=== PATIENT | female | born 1930 | race Caucasian/White ===

== ENCOUNTER 2017-05-03 13:32 | Emergency (ER) | payer SELFPAY ==
--- NOTE | 2017-05-03 13:44 | EDPHY ---
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 She was in the shower this morning and felt her heart racing. This was not associated with chest pain shortness of breath or syncope but she feels like she has decreased energy she uses the term"not enthusiastic." REVIEW OF SYSTEMS: Eye: no change in vision ENT: no sore throat Cardiac: HPI Pulmonary: no cough or SOB Abdomen: no vomiting, diarrhea, abdominal pain Musculoskeletal: no back pain Skin: no rash Neuro: no headache Constitutional: no fever : no urinary symptoms A comprehensive 10 point review of systems is otherwise negative aside from elements mentioned in the history of present illness. PAST MEDICAL HISTORY: Negative Social history: Here with her ex [id number], retired surgeon from [facility] General Appearance: Alert and conversant, cooperative. Eyes: No scleral icterus. ENT, Mouth: Normal mucous membranes. Respiratory: Normal respiratory effort, breath sounds equal, lungs are clear to auscultation. Cardiovascular: Regular rate and rhythm. Tachycardic Gastrointestinal: Abdomen is soft and non tender. Neurological: Alert, face symmetric, normal motor and sensory in extremities. Skin: Warm and dry, no rashes. Musculoskeletal: No peripheral edema. Psychiatric: Not agitated. Emergency Department course/MDM: Both EKGs reviewed by myself appear to be SVT, she was given 6 mg IV adenosine and converted to sinus rhythm. Labs to include electrolytes troponin and D-dimer. 1445: Results discussed, still in sinus rhythm. D-dimer and troponin negative. Clinically the patient is safe for discharge does not appear to have high risk for ACS or venous thromboembolism. I told her I think it is reasonable for to travel back to [facility] in the next few days if that is her wish. She is discharged with copies of her EKGs and labs. Smoking Status: Former smoker Constitutional: Initial Vital Signs Temperature (C) 36.5 C 05/03/17 13:34 Heart Rate 145 H 05/03/17 13:34 Respiratory Rate 16 05/03/17 13:34 Blood Pressure 100/81 H 05/03/17 13:34 O2 Sat (%) 94 05/03/17 13:34 O2 Delivery Mode Nasal Cannula O2 (L/minute) 2 Allergies/Adverse Reactions: No Known Allergies Allergy (Unverified 05/03/17 13:38) Home Medications: Medication Instructions Recorded NK [No Known Home Meds] 05/03/17 Medical Decision Making - Diagnostics EKG Interpretation: 12-lead EKG interpreted by me; official reading is in trace master. My interpretation is supraventricular tachycardia rate 145 with rate-related ST changes. 12-lead EKG interpreted by me; official reading is in trace master. My interpretation is sinus rhythm rate 87 with inferior Q-waves noted, after conversion Differential Diagnosis: Differential diagnosis considered for narrow complex tachycardia including but not limited to various causes of sinus tachycardia, SVT, atrial flutter and atrial fibrillation. Critical Care Time: Critical care time spent by me, Dr. Bah, exclusively with the care of this patient was 30 minutes, exclusive of PA or JUNIOR SALES REPRESENTATIVE time and exclusive of separate procedures. The organ system at risk was cardiovascular for tachycardia and I ordered multiple EKGs IV adenosine, serial monitor to stabilize the patient and prevent worsening of the patient's condition. - Data Points Laboratory Results: Laboratory Results 05/03/17 13:31 05/03/17 13:31 05/03/17 05/03/17 05/03/17 13:31 13:31 13:31 WBC 8.20 10^3/uL 10^3/uL (3.80-9.50) RBC 5.07 10^6/uL 10^6/uL (4.18-5.33) Hgb 15.9 g/dL g/dL (12.6-16.3) Hct 49.7 % H % (38.0-47.0) MCV 98.0 fL fL (81.5-99.8) MCH 31.4 pg pg (27.9-34.1) MCHC 32.0 g/dL L g/dL (32.4-36.7) RDW 13.4 % % (11.5-15.2) Plt Count 198 10^3/uL 10^3/uL (150-400) MPV 11.9 fL H fL (8.7-11.7) Neut % (Auto) 64.0 % % (39.3-74.2) Lymph % (Auto) 27.8 % % (15.0-45.0) [place] % (Auto) 6.1 % % (4.5-13.0) Eos % (Auto) 1.1 % % (0.6-7.6) Baso % (Auto) 0.6 % % (0.3-1.7) Nucleat RBC Rel Count 0.0 % % (0.0-0.2) Absolute Neuts (auto) 5.25 10^3/uL 10^3/uL (1.70-6.50) Absolute Lymphs (auto) 2.28 10^3/uL 10^3/uL (1.00-3.00) Absolute Monos (auto) 0.50 10^3/uL 10^3/uL (0.30-0.80) Absolute Eos (auto) 0.09 10^3/uL 10^3/uL (0.03-0.40) Absolute Basos (auto) 0.05 10^3/uL 10^3/uL (0.02-0.10) Absolute Nucleated RBC 0.00 10^3/uL 10^3/uL (0-0.01) Immature Gran % 0.4 % % (0.0-1.1) Immature Gran # 0.03 10^3/uL 10^3/uL (0.00-0.10) D-Dimer 0.42 ug/mLFEU ug/mLFEU (0.00-0.50) Sodium 142 mEq/L mEq/L (135-145) Potassium 4.8 mEq/L mEq/L (3.5-5.2) Chloride 108 mEq/L mEq/L (97-110) Carbon Dioxide 21 mEq/l L mEq/l (22-31) Anion Gap 13 mEq/L mEq/L (8-16) BUN 18 mg/dL mg/dL (7-23) Creatinine 0.9 mg/dL mg/dL (0.6-1.0) Estimated GFR 60 Glucose 109 mg/dL H mg/dL (70-100) Calcium 9.8 mg/dL mg/dL (8.5-10.4) Troponin I 0.034 ng/mL ng/mL (0.000-0.034) Medications Given: Discontinued Medications Adenosine (Adenosine) 6 mg IVP EDNOW ONE Stop: 05/03/17 14:01 Last Admin: 02/23/18 14:02 Dose: 6 mg Departure - Departure Disposition: Home, Routine, Self-Care Clinical Impression: Supraventricular tachycardia Condition: Good Instructions: Supraventricular Tachycardia (ED) Referrals: Kedar Herrera MD [Medical Doctor] - As per Instructions
--- NOTE | 2017-05-03 13:51 | CPEKG ---
Heart Rate: 139 RR Interval: 432 P-R Interval: 260 QRSD Interval: 74 QT Interval: 312 QTC Interval: 475 P [place]: 0 QRS [place]: -38 T Wave [place]: 49 EKG Severity - ABNORMAL ECG - EKG Impression: SUPRAVENTRICULAR TACHYCARDIA EKG Impression: PROBABLE LEFT VENTRICULAR HYPERTROPHY EKG Impression: PROBABLE INFERIOR INFARCT, OLD Electronically Signed By: Dionte Bah 03-May-2017 14:02:09
[2017-05-03] MEDS ORDERED: ADENOSINE 6 MG/2 ML VIAL ONE (13:55)
--- NOTE | 2017-05-03 13:58 | CPEKG ---
Heart Rate: 138 RR Interval: 435 QRSD Interval: 74 QT Interval: 312 QTC Interval: 473 QRS [place]: -33 T Wave [place]: 49 EKG Severity - ABNORMAL ECG - EKG Impression: JUNCTIONAL TACHYCARDIA EKG Impression: LEFT AXIS DEVIATION EKG Impression: PROBABLE LEFT VENTRICULAR HYPERTROPHY Electronically Signed By: Dionte Bah 03-May-2017 14:01:56
[2017-05-03] MEDS ORDERED: ADENOSINE 6 MG/2 ML VIAL IVP ONE (14:00)
[2017-05-03 14:04] LABS: PLATELET COUNT 198 10^3/uL (150-400)
--- NOTE | 2017-05-03 14:06 | CPEKG ---
Heart Rate: 87 RR Interval: 690 P-R Interval: 136 QRSD Interval: 70 QT Interval: 376 QTC Interval: 453 P [place]: 214 QRS [place]: -44 T Wave [place]: 43 EKG Severity - ABNORMAL ECG - EKG Impression: SINUS OR ECTOPIC ATRIAL RHYTHM EKG Impression: PROBABLE INFERIOR INFARCT, OLD Electronically Signed By: Dionte Bah 03-May-2017 14:07:55
[2017-05-03 14:36] VITALS: RESP 18
[2017-05-03 15:01] VITALS: BP 113/80; PULSE 78; TEMP 98.2; O2SAT 95
== END 2017-05-03 15:12 | disposition home or self-care (01) ==
DX: I47.1 Supraventricular tachycardia (principal); Z87.891 Personal history of nicotine dependence
CPT/HCPCS: 96374; J0153